=== PATIENT | male | born 2005 | race Two or more races ===

== ENCOUNTER 2023-06-25 09:35 | Emergency (ER) | payer OTHER ==
[2023-06-25 09:51] VITALS: BP 137/87; PULSE 104; RESP 18; TEMP 98; BMI 19.0
[2023-06-25] MEDS ORDERED: ACETAMINOPHEN 1000 MG/100 ML BAG IVPB ONE (10:24)
[2023-06-25] MEDS ORDERED: DEXAMETHASONE SOD PHOSPHATE 10 MG/1 ML VIAL IVPUSH ONE (10:24)
[2023-06-25] MEDS ORDERED: ACETAMINOPHEN INJECTION 100 ML IVPB ONE (10:50)
[2023-06-25] MEDS ORDERED: DEXAMETHASONE SOD PHOSPHATE 10 MG/1 ML VIAL ONE (10:50)
[2023-06-25 11:08] LABS: HEMATOCRIT 42.3 % (35.4-49); HEMOGLOBIN 14.5 GM/dL (11.7-16.9); MCH 30.8 pg (25.7-33.7); MCHC 34.4 g/dl (32.0-35.9); MEAN CELL VOLUME 89.6 fl (80-96); MEAN PLT VOLUME 9.3 fl (7.5-11.1); PLATELET COUNT 347 10^3/uL (134-434); RBC 4.72 M/mm3 (4.00-5.60); RDW 13.2 % (11.9-15.9); WHITE BLOOD COUNT 20.8 K/mm3 (4.0-10.0)
[2023-06-25 11:35] LABS: POTASSIUM 3.7 mmol/L (3.5-5.1)
[2023-06-25 11:37] LABS: CALCIUM 9.2 mg/dL (8.5-10.1)
[2023-06-25 11:38] LABS: ALBUMIN 4.6 g/dl (3.4-5.0); BLOOD UREA NITROGEN 11.4 mg/dL (7-18)
[2023-06-25 11:38] LABS: THROAT:GRP A STREP NOT DETECTED (NOTDETECTED)
[2023-06-25 11:42] LABS: BILIRUBIN,TOTAL 0.8 mg/dL (0.2-1)
[2023-06-25 11:43] LABS: TOT PROT 7.9 g/dl (6.4-8.2)
[2023-06-25 12:53] LABS: ANISOCYTOSIS 2+; MACROCYTOSIS 0
[2023-06-25] MEDS ORDERED: AMOX TR/POT CLAV 875MG/125MG TABLETS (FP) PO ONE (14:36)
[2023-06-25] MEDS ORDERED: AMOX TR/POT CLAV 875MG/125MG TABLETS (FP) ONE (15:12)
== END 2023-06-25 17:15 | disposition home or self-care (01) ==
LOC: JER 09:35
PROC: 3E033NZ Introduction of Analgesics, Hypnotics, Sedatives into Peripheral Vein, Percutaneous Approach (ICD-10-PCS; principal; 2023-06-25)
PROC: 3E033GC Introduction of Other Therapeutic Substance into Peripheral Vein, Percutaneous Approach (ICD-10-PCS; 2023-06-25)
DX: J02.9 Acute pharyngitis, unspecified (principal); R07.0 Pain in throat; R13.10 Dysphagia, unspecified; J35.1 Hypertrophy of tonsils; J36 Peritonsillar abscess; Z20.822 Contact with and (suspected) exposure to COVID-19
CPT/HCPCS: 0241U-QW; 36415; 70491-TC; 80053; 85025; 87651; 99285-25; J1100; Q9967